=== PATIENT | male | born 1955 | race Caucasian/White ===

== ENCOUNTER 2023-10-24 12:05 | Emergency (ER) | payer OTHER ==
[~2023-10-24] VITALS: Ht 170.2 cm; Wt 83.9 kg
[2023-10-24] MEDS ORDERED: ONDANSETRON HCL/PF 4 MG/2 ML VIAL ONE (12:25)
[2023-10-24] MEDS ORDERED: MORPHINE SULFATE INJ 4 MG/ML DISP.SYRIN ONE (12:25)
[2023-10-24] MEDS: IV NS 0.9% 1,000 ML BAG IV ONE (12:35)
[2023-10-24 12:36] LABS: BASOPHILS % (AUTO) 0.5 % (0.0-2.0); EOSINOPHILS # (AUTO) 0.1 K/uL (0.0-0.7); EOSINOPHILS % (AUTO) 0.9 % (0.0-6.0); HEMATOCRIT 39 % (39-51); HEMOGLOBIN 12.7 g/dL (13.5-17.5); LYMPHOCYTES # (AUTO) 2.6 K/uL (0.8-4.8); LYMPHOCYTES % (AUTO) 29.7 % (20.0-44.0); MEAN CORPUSCULAR HEMOGLOBIN 30 PG (26.0-33.0); MEAN CORPUSCULAR HGB CONC 33 g/dl (31.0-36.0); MEAN CORPUSCULAR VOLUME 92 fL (80-96); MONOCYTES # (AUTO) 0.7 K/uL (0.1-1.30); MONOCYTES % (AUTO) 8.2 % (2.0-12.0); NEUTROPHILS # (AUTO) 5.4 K/uL (1.8-8.9); NEUTROPHILS % (AUTO) 60.7 % (43.0-81.0); PLATELET COUNT (AUTO) 299 K/uL (150-450); RED CELL DISTRIBUTION WIDTH 13.3 % (11.5-15.0); WHITE BLOOD COUNT (AUTO) 8.9 K/uL (4.3-11.0)
[2023-10-24] MEDS: ONDANSETRON HCL/PF 4 MG/2 ML VIAL IV ONE (12:40)
[2023-10-24] MEDS: MORPHINE SULFATE INJ 2 MG/ML DISP.SYRIN IV ONE (12:40)
[2023-10-24 12:43] LABS: CARBON DIOXIDE 25 mmol/L (21-32); CHLORIDE 101 mmol/L (98-107); CREATININE 1.2 mg/dL (0.6-1.3); GLUCOSE 159 mg/dL (74-106); POTASSIUM 4.7 mmol/L (3.5-5.1); SODIUM SERUM 134 mmol/L (136-145); UREA NITROGEN, BLOOD 19 mg/dL (7-18)
[2023-10-24] MEDS ORDERED: IOHEXOL-350 100 ML VIAL IV ONE (14:12)
[2023-10-24] MEDS ORDERED: CT SWABBABLE VALVE TRANS SET 1 EA INFUS.SET MC ONE (14:13)
[2023-10-24] MEDS ORDERED: IV NS 0.9% 250 ML IV ONE (14:13)
[2023-10-24 15:24] LABS: APPEARANCE,URINE CLEAR (CLEAR); BILIRUBIN,URINE NEGATIVE (NEGATIVE); BLOOD, URINE 1+ Ery/uL (NEGATIVE); COLOR,URINE YELLOW (YELLOW); KETONES,URINE NEGATIVE (NEGATIVE); LEUKOCYTE ESTERASE ,URINE NEGATIVE (NEGATIVE); NITRITE, URINE NEGATIVE (NEGATIVE); PROTEIN,URINE NEGATIVE (NEGATIVE); UGLUCOSE NEGATIVE (NEGATIVE); UROBILINOGEN,URINE 0.2 EU/dL (0.2)
[2023-10-24 15:39] LABS: ADD URINE CULTURE NO; BACTERIA,URINE Few /HPF (None Seen); SQUAMOUS EPITHELIAL CELL,UR Few /HPF (None Seen); WBC,URINE 0-2 /HPF (0-3)
[2023-10-24 17:11] LABS: AMPHETAMINE, URINE NEGATIVE (NEGATIVE); BARBITURATE, URINE NEGATIVE (NEGATIVE); BENZODIAZEPINE, URINE NEGATIVE (NEGATIVE); COCCAINE, URINE NEGATIVE (NEGATIVE); PHENCYCLIDINE SCREEN,URINE NEGATIVE (NEGATIVE)
[2023-10-24 17:16] LABS: CANNABINOID, URINE POSITIVE (NEGATIVE); OPIATE, URINE POSITIVE (NEGATIVE)
[2023-10-24 18:48] VITALS: BP 128/77; TEMP 98.2; O2SAT 99
== END 2023-10-24 18:51 ==
LOC: ER 12:08
DX: G89.29 Other chronic pain (principal); M79.7 Fibromyalgia; R00.0 Tachycardia, unspecified; I10 Essential (primary) hypertension; E11.9 Type 2 diabetes mellitus without complications; F11.20 Opioid dependence, uncomplicated; Z88.8 Allergy status to other drugs, medicaments and biological substances
CPT/HCPCS: 99285; 96374; 96361; 96375; 93005 ×2; 71045; 71275; 85025; 80048; 85378; 81001; 36415; 84443; 84484 ×2; 80320; 80307; J2270; J2405; J7030; J7050; Q9967; G0480

== ENCOUNTER 2023-10-24 19:10 | Emergency (ER) | payer OTHER ==
[~2023-10-24] VITALS: Ht 175.3 cm; Wt 83.9 kg
[2023-10-24] MEDS ORDERED: LORAZEPAM 1 MG TABLET ONE (19:49)
[2023-10-24] MEDS: LORAZEPAM 1 MG TABLET PO ONE (19:56)
[2023-10-24 22:16] VITALS: BP 129/79; TEMP 98.8; O2SAT 95
== END 2023-10-24 22:16 ==
LOC: ER 19:15
DX: F41.9 Anxiety disorder, unspecified (principal); R00.0 Tachycardia, unspecified; I10 Essential (primary) hypertension; E11.9 Type 2 diabetes mellitus without complications; Z88.8 Allergy status to other drugs, medicaments and biological substances

== ENCOUNTER 2023-11-23 22:05 | Emergency (ER) | payer OTHER ==
[~2023-11-23] VITALS: Ht 172.7 cm; Wt 90.7 kg
[2023-11-23] MEDS ORDERED: HYDROCODONE/APAP 5/325MG TABLET ONE (23:08)
[2023-11-23] MEDS: HYDROCODONE/APAP 5/325MG TABLET PO ONE (23:10)
[2023-11-24 02:56] VITALS: BP 142/87; TEMP 98; O2SAT 98
[2023-11-24] MEDS ORDERED: HYDROCODONE/APAP 5/325MG TABLET ONE (03:46)
[2023-11-24] MEDS: HYDROCODONE/APAP 5/325MG TABLET PO ONE (03:47)
[2023-11-24] MEDS ORDERED: FAMO20TA80 PO (14:29)
[2023-11-24] MEDS ORDERED: METF-442 PO (14:29)
[2023-11-24] MEDS ORDERED: DULO60CA45 PO (14:29)
[2023-11-24] MEDS ORDERED: METO-357 PO (14:29)
[2023-11-24] MEDS ORDERED: FURO-145 PO (14:29)
[2023-11-24] MEDS ORDERED: INSU100I14 SQ (14:29)
[2023-11-24] MEDS ORDERED: GUAI-1133 PO (14:29)
[2023-11-24] MEDS ORDERED: ATOR20TA PO (14:29)
[2023-11-24] MEDS ORDERED: INSU100I30 SQ (14:29)
[2023-11-24] MEDS ORDERED: NALO4SPR NS (14:29)
[2023-11-24] MEDS ORDERED: ALBU8.5H8 IH (14:29)
[2023-11-24] MEDS ORDERED: SODI5POW2 PO (14:29)
[2023-11-24] MEDS ORDERED: NEOM1OIN15 TP (14:29)
[2023-11-24] MEDS ORDERED: ACET-2030 PO (14:29)
[2023-11-24] MEDS ORDERED: TIZA4TAB5 PO (14:29)
[2023-11-24] MEDS ORDERED: FLUT16SP16 BNOSTRILS (14:29)
[2023-11-24] MEDS ORDERED: FLUT1BLS14 IH (14:29)
[2023-11-24] MEDS ORDERED: TAMS-12 PO (14:29)
[2023-11-24] MEDS ORDERED: PREG100C PO (14:29)
[2023-11-24] MEDS ORDERED: LORA10TA7 PO (14:29)
[2023-11-24] MEDS ORDERED: IV NS 0.9% 250 ML IV ONE (15:57)
[2023-11-24] MEDS ORDERED: IOHEXOL-350 100 ML VIAL IV ONE (15:57)
[2023-11-24] MEDS ORDERED: CT SWABBABLE VALVE TRANS SET 1 EA INFUS.SET MC ONE (15:57)
== END 2023-11-24 04:11 ==
LOC: ER 22:22
DX: S39.012A Strain of muscle, fascia and tendon of lower back, initial encounter (principal); S80.812A Abrasion, left lower leg, initial encounter; S80.811A Abrasion, right lower leg, initial encounter; S09.8XXA Other specified injuries of head, initial encounter; I10 Essential (primary) hypertension; E11.9 Type 2 diabetes mellitus without complications; G89.29 Other chronic pain; Z88.8 Allergy status to other drugs, medicaments and biological substances; W18.39XA Other fall on same level, initial encounter; Y93.89 Activity, other specified; Y92.89 Other specified places as the place of occurrence of the external cause; Y99.8 Other external cause status
CPT/HCPCS: 70450-TC; 72125-TC; 72131-TC; J7050; Q9967

== ENCOUNTER 2023-11-24 13:40 | Inpatient (IN) | payer OTHER ==
[~2023-11-24] VITALS: Ht 172.7 cm; Wt 87.1 kg
[2023-11-24] MEDS: IV NS 0.9% 1,000 ML BAG IV ONE ×2 (13:57→16:06)
[2023-11-24 14:26] LABS: APPEARANCE,URINE SLIGHTLY CLOUDY (CLEAR); BILIRUBIN,URINE NEGATIVE (NEGATIVE); BLOOD, URINE 2+ Ery/uL (NEGATIVE); COLOR,URINE YELLOW (YELLOW); KETONES,URINE NEGATIVE (NEGATIVE); LEUKOCYTE ESTERASE ,URINE 2+ (NEGATIVE); NITRITE, URINE NEGATIVE (NEGATIVE); PROTEIN,URINE 2+ mg/dl (NEGATIVE); UGLUCOSE NEGATIVE (NEGATIVE); UROBILINOGEN,URINE 0.2 EU/dL (0.2)
[2023-11-24] MEDS ORDERED: NALO4SPR NS (14:29)
[2023-11-24] MEDS ORDERED: ALBU8.5H8 IH (14:29)
[2023-11-24] MEDS ORDERED: FLUT1BLS14 IH (14:29)
[2023-11-24] MEDS ORDERED: ATOR20TA PO (14:29)
[2023-11-24] MEDS ORDERED: FAMO20TA80 PO (14:29)
[2023-11-24] MEDS ORDERED: SODI5POW2 PO (14:29)
[2023-11-24] MEDS ORDERED: FLUT16SP16 BNOSTRILS (14:29)
[2023-11-24] MEDS ORDERED: DULO60CA45 PO (14:29)
[2023-11-24] MEDS ORDERED: METF-442 PO (14:29)
[2023-11-24] MEDS ORDERED: NEOM1OIN15 TP (14:29)
[2023-11-24] MEDS ORDERED: LORA10TA7 PO (14:29)
[2023-11-24] MEDS ORDERED: FURO-145 PO (14:29)
[2023-11-24] MEDS ORDERED: METO-357 PO (14:29)
[2023-11-24] MEDS ORDERED: GUAI-1133 PO (14:29)
[2023-11-24] MEDS ORDERED: ACET-2030 PO (14:29)
[2023-11-24] MEDS ORDERED: PREG100C PO (14:29)
[2023-11-24] MEDS ORDERED: TIZA4TAB5 PO (14:29)
[2023-11-24] MEDS ORDERED: INSU100I30 SQ (14:29)
[2023-11-24] MEDS ORDERED: INSU100I14 SQ (14:29)
[2023-11-24] MEDS ORDERED: TAMS-12 PO (14:29)
[2023-11-24 14:37] LABS: HEMATOCRIT 32 % (39-51); HEMOGLOBIN 10.5 g/dL (13.5-17.5); LYMPHOCYTES # (AUTO) 0.7 K/uL (0.8-4.8); LYMPHOCYTES % (AUTO) 3.9 % (20.0-44.0); MEAN CORPUSCULAR HEMOGLOBIN 30 PG (26.0-33.0); MEAN CORPUSCULAR HGB CONC 33 g/dl (31.0-36.0); MEAN CORPUSCULAR VOLUME 90 fL (80-96); MONOCYTES # (AUTO) 1.7 K/uL (0.1-1.30); NEUTROPHILS # (AUTO) 14.8 K/uL (1.8-8.9); NEUTROPHILS % (AUTO) 86.1 % (43.0-81.0); PLATELET COUNT (AUTO) 252 K/uL (150-450); RED BLOOD CELL COUNT(AUTO) 3.55 MIL/uL (4.5-6.0); RED CELL DISTRIBUTION WIDTH 13.3 % (11.5-15.0); WHITE BLOOD COUNT (AUTO) 17.2 K/uL (4.3-11.0)
[2023-11-24 14:55] LABS: CALCIUM, SERUM 7.9 mg/dL (8.5-10.1); CARBON DIOXIDE 23 mmol/L (21-32); CHLORIDE 100 mmol/L (98-107); CREATININE 1.3 mg/dL (0.6-1.3); GLUCOSE 116 mg/dL (74-106); INR 1.14 (0.91-1.10); PARTIAL THROMBOPLASTIN TIME 36.6 SEC (24.3-34.3); POTASSIUM 3.7 mmol/L (3.5-5.1); SODIUM SERUM 135 mmol/L (136-145); UREA NITROGEN, BLOOD 27 mg/dL (7-18)
[2023-11-24 14:59] LABS: ADD URINE CULTURE YES; BACTERIA,URINE 2+ /HPF (None Seen); MUCUS,URINE Few /LPF (None Seen); RBC,URINE 21-50 /HPF (0-2); WBC,URINE 51-80 /HPF (0-3)
[2023-11-24 15:01] LABS: ALANINE AMINOTRANSFERASE 16 U/L (12-78); ALBUMIN 2.3 g/dL (3.4-5.0); ALKALINE PHOSPHATASE 71 U/L (46-116); ASPARTATE AMINOTRANSFERASE 13 U/L (15-37); BILIRUBIN,DIRECT 0.2 mg/dL (0.0-0.2); BILIRUBIN,TOTAL 0.5 mg/dL (0.2-1.0)
[2023-11-24 15:06] LABS: THYROID STIMULATING HORMONE 1.87 uIU/mL (0.358-3.74)
[2023-11-24] MEDS: AZITHROMYCIN 500 MG in IV D5W 250 ML IV ONE (16:15)
[2023-11-24 16:16] LABS: LACTIC ACID 2.1 mmol/L (0.4-2.0)
[2023-11-24] MEDS: CEFTRIAXONE 1GM BAG (ER ONLY) 50 ML IV ONE (16:27)
[2023-11-24] MEDS ORDERED: Z GUARD REMEDY 4 OZ OINT TP PRN (16:30)
[2023-11-24] MEDS ORDERED: MAG HYDROX/AL HYDROX/SIMETH 30 ML UDC PO PRN (16:30)
[2023-11-24] MEDS ORDERED: MAGNESIUM HYDROXIDE 30 ML UDC PO PRN (16:30)
[2023-11-24] MEDS: ENOXAPARIN SODIUM 30 MG/0.3 ML DISP.SYRIN SQ SCH (17:15)
[2023-11-24] MEDS: ACETAMINOPHEN 325 MG TABLET PO PRN (18:21)
[2023-11-24 20:00] VITALS: BP 125/74; TEMP 99.5; O2SAT 97
[2023-11-24] MEDS: IV NS 0.9% 1,000 ML IV PRN (20:30)
[2023-11-25] VITALS (12 sets, daily range): BP systolic 113–150; BP diastolic 60–92; TEMP 98–99; O2SAT 95–99
[2023-11-25] MEDS: GUAIFENESIN/CODEINE 10 ML UDC PO PRN (00:55)
[2023-11-25] MEDS: LEVALBUTEROL HCL NEB 1.25 MG/0.5 ML VIAL.NEB NEB PRN (05:10)
[2023-11-25] MEDS: IPRATROPIUM NEB FS 0.5 MG/2.5 ML AMPUL.NEB NEB PRN (05:10)
[2023-11-25 06:44] LABS: BASOPHILS % (AUTO) 0.1 % (0.0-2.0); HEMATOCRIT 32 % (39-51); HEMOGLOBIN 10.2 g/dL (13.5-17.5); LYMPHOCYTES # (AUTO) 0.8 K/uL (0.8-4.8); LYMPHOCYTES % (AUTO) 4.5 % (20.0-44.0); MEAN CORPUSCULAR HEMOGLOBIN 29 PG (26.0-33.0); MEAN CORPUSCULAR HGB CONC 32 g/dl (31.0-36.0); MEAN CORPUSCULAR VOLUME 90 fL (80-96); MONOCYTES # (AUTO) 1.2 K/uL (0.1-1.30); MONOCYTES % (AUTO) 6.6 % (2.0-12.0); NEUTROPHILS # (AUTO) 15.8 K/uL (1.8-8.9); NEUTROPHILS % (AUTO) 88.8 % (43.0-81.0); PLATELET COUNT (AUTO) 247 K/uL (150-450); RED BLOOD CELL COUNT(AUTO) 3.49 MIL/uL (4.5-6.0); RED CELL DISTRIBUTION WIDTH 13.5 % (11.5-15.0); WHITE BLOOD COUNT (AUTO) 17.8 K/uL (4.3-11.0)
[2023-11-25 07:07] LABS: CALCIUM, SERUM 8.1 mg/dL (8.5-10.1); CREATININE 1.3 mg/dL (0.6-1.3); MAGNESIUM 1.7 mg/dL (1.8-2.4); POTASSIUM 3.7 mmol/L (3.5-5.1)
[2023-11-25] MEDS ORDERED: ALBUTEROL SULFATE 8 GM HFA.AER.AD IH PRN (10:00)
[2023-11-25] MEDS: PREGABALIN 100 MG CAPSULE PO SCH (10:02)
[2023-11-25] MEDS: METOPROLOL SUCCINATE 50 MG TAB.SR.24H PO SCH (10:02)
[2023-11-25] MEDS: FAMOTIDINE (20 MG) 20 MG TABLET PO SCH (10:02)
[2023-11-25 11:31] LABS: THYROID STIMULATING HORMONE 1.11 uIU/mL (0.358-3.74)
[2023-11-25] MEDS: MAGNESIUM OXIDE 400 MG TABLET PO ONE (12:18)
[2023-11-25] MEDS: BUDESONIDE RESPULE INH 0.5 MG/2 ML AMPUL.NEB NEB SCH (15:20)
[2023-11-25] MEDS: ALBUTEROL FS 2.5 MG/3 ML VIAL.NEB NEB SCH (16:58)
[2023-11-25] MEDS: DULOXETINE HCL 30 MG CAPSULE.DR PO SCH (17:19)
[2023-11-25] MEDS: HYDROCODONE/APAP 5/325MG TABLET PO PRN (21:01)
[2023-11-25] MEDS: TIZANIDINE HCL 4 MG TABLET PO SCH (22:28)
[2023-11-25] MEDS: TAMSULOSIN 0.4 MG CAP.SR.24H PO SCH (22:28)
[2023-11-26] VITALS (11 sets, daily range): BP systolic 133–150; BP diastolic 79–88; TEMP 98.1–99.7; O2SAT 95–99
[2023-11-26 07:26] LABS: ALANINE AMINOTRANSFERASE 25 U/L (12-78); ALKALINE PHOSPHATASE 82 U/L (46-116); ASPARTATE AMINOTRANSFERASE 29 U/L (15-37); BILIRUBIN,TOTAL 0.4 mg/dL (0.2-1.0); CALCIUM, SERUM 8.1 mg/dL (8.5-10.1); CARBON DIOXIDE 23 mmol/L (21-32); CHLORIDE 101 mmol/L (98-107); CREATININE 1.1 mg/dL (0.6-1.3); GLUCOSE 257 mg/dL (74-106); MAGNESIUM 2.2 mg/dL (1.8-2.4); PHOSPHORUS 2.4 mg/dL (2.5-4.9); POTASSIUM 3.5 mmol/L (3.5-5.1); SODIUM SERUM 134 mmol/L (136-145); TOTAL PROTEIN, SERUM 6.9 g/dL (6.4-8.2); UREA NITROGEN, BLOOD 27 mg/dL (7-18)
[2023-11-26 07:31] LABS: BASOPHILS % (AUTO) 0.2 % (0.0-2.0); EOSINOPHILS % (AUTO) 0.2 % (0.0-6.0); HEMATOCRIT 30 % (39-51); HEMOGLOBIN 9.8 g/dL (13.5-17.5); LYMPHOCYTES # (AUTO) 0.7 K/uL (0.8-4.8); LYMPHOCYTES % (AUTO) 5.8 % (20.0-44.0); MEAN CORPUSCULAR HEMOGLOBIN 30 PG (26.0-33.0); MEAN CORPUSCULAR HGB CONC 33 g/dl (31.0-36.0); MEAN CORPUSCULAR VOLUME 90 fL (80-96); MONOCYTES # (AUTO) 1.2 K/uL (0.1-1.30); NEUTROPHILS # (AUTO) 10.9 K/uL (1.8-8.9); NEUTROPHILS % (AUTO) 84.8 % (43.0-81.0); PLATELET COUNT (AUTO) 251 K/uL (150-450); RED BLOOD CELL COUNT(AUTO) 3.29 MIL/uL (4.5-6.0); RED CELL DISTRIBUTION WIDTH 13.8 % (11.5-15.0); WHITE BLOOD COUNT (AUTO) 12.8 K/uL (4.3-11.0)
[2023-11-26] MEDS: ATORVASTATIN 10 MG TABLET PO SCH (08:55)
[2023-11-26 11:47] LABS: BAND % (MANUAL) 3 % (0.0-5.0); BASOPHILS % (MANUAL) 0 % (0.0-2.0); EOSINOPHILS % (MANUAL) 0 % (0-4); LYMPHOCYTES % (MANUAL) 5 % (16-48); MONOCYTES % (MANUAL) 6 % (0-11.0); MYELOCYTES % 1 % (0-0); NEUTROPHILS % (MANUAL) 85 (42-76)
[2023-11-26 12:50] LABS: PLATELET ESTIMATE ADEQUATE
[2023-11-26] MEDS: K PHOS NEUTRAL 250 MG TABLET PO ONE (16:23)
[2023-11-26] MEDS: ONDANSETRON HCL/PF 4 MG/2 ML VIAL IVP PRN (22:22)
[2023-11-27] VITALS (14 sets, daily range): BP systolic 101–138; BP diastolic 74–97; TEMP 97.9–98.2; O2SAT 94–100
[2023-11-27 06:30] LABS: BASOPHILS % (AUTO) 0.2 % (0.0-2.0); EOSINOPHILS # (AUTO) 0.1 K/uL (0.0-0.7); EOSINOPHILS % (AUTO) 0.8 % (0.0-6.0); HEMATOCRIT 29 % (39-51); HEMOGLOBIN 9.7 g/dL (13.5-17.5); LYMPHOCYTES # (AUTO) 0.9 K/uL (0.8-4.8); LYMPHOCYTES % (AUTO) 8.2 % (20.0-44.0); MEAN CORPUSCULAR HEMOGLOBIN 30 PG (26.0-33.0); MEAN CORPUSCULAR HGB CONC 33 g/dl (31.0-36.0); MEAN CORPUSCULAR VOLUME 90 fL (80-96); MONOCYTES # (AUTO) 1.1 K/uL (0.1-1.30); MONOCYTES % (AUTO) 10.9 % (2.0-12.0); NEUTROPHILS # (AUTO) 8.4 K/uL (1.8-8.9); NEUTROPHILS % (AUTO) 79.9 % (43.0-81.0); PLATELET COUNT (AUTO) 253 K/uL (150-450); RED BLOOD CELL COUNT(AUTO) 3.25 MIL/uL (4.5-6.0); WHITE BLOOD COUNT (AUTO) 10.5 K/uL (4.3-11.0)
[2023-11-27] MEDS ORDERED: DEXTROSE 50%-WATER 50 ML DISP.SYRIN IV PRN (06:30)
[2023-11-27 06:43] LABS: CALCIUM, SERUM 8.5 mg/dL (8.5-10.1); CREATININE 1.1 mg/dL (0.6-1.3); PHOSPHORUS 2.3 mg/dL (2.5-4.9); POTASSIUM 3.2 mmol/L (3.5-5.1)
[2023-11-27] MEDS: BLOOD SUGAR DIAGNOSTIC 1 EACH STRIP VI SCH (06:45)
[2023-11-27] MEDS: INSULIN REGULAR, HUMAN 100 UNIT/ML 3 ML VIAL SQ PRN (06:46)
[2023-11-27] MEDS: NEOMY SULF/BACITRAC ZN/POLY 15 GM TUBE TP SCH (10:00)
[2023-11-27] MEDS: POTASSIUM CHLORIDE 20 MEQ TAB.PRT.SR PO SCH (10:39)
[2023-11-27] MEDS: CEFTRIAXONE 1 G in IV D5W 50 ML IV SCH (11:13)
[2023-11-27 12:57] LABS: THYROID STIMULATING HORMONE 1.36 uIU/mL (0.358-3.74)
[2023-11-27] MEDS: SOD FERRIC GLUC 125 MG in IV NS 0.9% 100 ML IV SCH (13:37)
[2023-11-27] MEDS: BENZONATATE 100 MG CAPSULE PO PRN (15:05)
[2023-11-27] MEDS: K PHOS NEUTRAL 250 MG TABLET PO ONE (17:30)
[2023-11-27] MEDS: *INSULIN REGULAR(HUMULIN R)HUM 100 UNIT/ML VIAL SQ PRN (22:17)
[2023-11-28] VITALS (11 sets, daily range): BP systolic 138–144; BP diastolic 81–88; TEMP 98.2; O2SAT 93–98
[2023-11-28 07:55] LABS: CALCIUM, SERUM 8.3 mg/dL (8.5-10.1); POTASSIUM 3.9 mmol/L (3.5-5.1)
[2023-11-28] MEDS: INSULIN GLARGINE, 100 UNIT/ML CARTRIDGE SQ SCH (09:31)
[2023-11-29] VITALS (10 sets, daily range): BP systolic 134–145; BP diastolic 59–79; TEMP 97.5–98.6; O2SAT 92–97
[2023-11-29] MEDS: VANCOMYCIN 1 GM in IV D5W 250ml IV ONE ×2 (19:47→20:58)
[2023-11-30] VITALS (10 sets, daily range): BP systolic 115–152; BP diastolic 76–84; TEMP 98.1–98.4; O2SAT 92–98
[2023-11-30 07:56] LABS: CALCIUM, SERUM 8.7 mg/dL (8.5-10.1); POTASSIUM 3.7 mmol/L (3.5-5.1)
[2023-11-30] MEDS: VANCOMYCIN HCL 1.25 GM in IV D5W 250 ML IV SCH (08:46)
[2023-11-30] MEDS ORDERED: VANCOMYCIN 1 GM in IV D5W 250 ML IV SCH (20:00)
== END 2023-11-30 19:40 | DRG 871 ==
LOC: ER 13:40 → TRANSITION 17:17 → TELE 18:34 → MED 11-26 10:05
PROVIDERS: ADMIT Internal Medicine; ATTEND Internal Medicine
DX: A41.9 Sepsis, unspecified organism (principal); G93.41 Metabolic encephalopathy; N39.0 Urinary tract infection, site not specified; E87.1 Hypo-osmolality and hyponatremia; A28.1 Cat-scratch disease; J98.11 Atelectasis; E86.0 Dehydration; B96.20 Unspecified Escherichia coli [E. coli] as the cause of diseases classified elsewhere; D64.9 Anemia, unspecified; E78.5 Hyperlipidemia, unspecified; G89.29 Other chronic pain; M79.7 Fibromyalgia; Z98.1 Arthrodesis status; I10 Essential (primary) hypertension; R53.1 Weakness; N40.1 Benign prostatic hyperplasia with lower urinary tract symptoms; E11.42 Type 2 diabetes mellitus with diabetic polyneuropathy; T14.8XXA Other injury of unspecified body region, initial encounter; W55.03XA Scratched by cat, initial encounter; Y93.9 Activity, unspecified; Y92.009 Unspecified place in unspecified non-institutional (private) residence as the place of occurrence of the external cause; S90.122A Contusion of left lesser toe(s) without damage to nail, initial encounter; S90.812A Abrasion, left foot, initial encounter; S90.811A Abrasion, right foot, initial encounter; R60.9 Edema, unspecified; S92.512A Displaced fracture of proximal phalanx of left lesser toe(s), initial encounter for closed fracture; I95.9 Hypotension, unspecified; Z79.4 Long term (current) use of insulin; Z79.84 Long term (current) use of oral hypoglycemic drugs
CPT/HCPCS: 36415; 70450-TC; 71045-TC; 73630-TC; 80048-TC; 80053-TC; 80061-TC; 80076-TC; 80202-TC; 81001; 82607-TC; 82728-TC; 82962-TC; 83540-TC; 83605-TC; 83735-TC; 83880; 84100-TC; 84439-TC; 84443-TC; 84484-TC; 85025-TC; 85378-TC; 85730-TC; 87040-TC; 87086-TC; 87186-TC; 93307-TC; 93970-TC; 94760-TC; 94762-TC; 94799-TC; 97116-TC; 97530-TC; A4223; A6403; G0378; J0456; J0696; J1650; J1815; J2405; J2916; J3370; J7030; J7040; J7050; J7060